=== PATIENT | male | born 1985 | race African-American/Black ===

== ENCOUNTER 2021-05-10 17:26 | Emergency (ER) | payer BC ==
[2021-05-11 08:18] LABS: SARS-CoV-2 PCR by NAA Not Detected (NotDetected)
== END 2021-05-10 18:35 | disposition home or self-care (01) ==
LOC: ERS 17:26
DX: R05 Cough (principal); M79.10 Myalgia, unspecified site; R53.83 Other fatigue; Z20.822 Contact with and (suspected) exposure to COVID-19
CPT/HCPCS: 71045; 99283; U0003; U0005